=== PATIENT | male | born 1965 | race Caucasian/White ===

== ENCOUNTER 2021-08-14 17:18 | Emergency (ER) | payer OTHER ==
[~2021-08-14] VITALS: Ht 188 cm; Wt 86.2 kg
--- NOTE | ~2021-08-14 | EMS ---
[address] [address] EMS Patient Care Report Name: HEIDI LEW Room #: DEP NANCY Sarmiento#: [id number] Admission: 08/14/21 Attend Phys: Discharge: 08/14/21 Date of : 63 Report #: [id number] THIS REPORT FOR: //name// Report Transmitted: 08/14/2021 23:47 EMS Care Summary [place], [place]/[facility] Incident [id number] @ 08/14/2021 16:46 Incident Location [address] [address] [place] [address] Patient HEIDI LEW Male, 55 Years 1965 Patient Address [id number] [place], [place] [id number] Patient History Other, Chief Complaint multiple areas of pain Disposition Transported No Lights/[place] Transported To [facility] Narrative pt found ambulatory in room, NAD. he called 911 himself. he reports he was opening a wooden shutter blind and it came off the wall and landed on him, knocking him to the ground. denies LOC. pt is req eval at [facility] for multiple area of pain. he appears to freely walking around the room w/o pain, he agrees to eval at [facility]. pt seated on cot, VS. pt begins to c/o neck pain so c collar place just PTD. no changes during transport. [address] [address] EMS Patient Care Report Name: HEIDI LEW Room #: DEP [facility].R.#: [id number] Admission: 08/14/21 Attend Phys: Discharge: 08/14/21 Date of : 63 Report #: [id number] Initial Vitals @17:03P: 80,R: 18,BP: 142/83,Pain: 10/10,GCS: 15,SpO2: 99,Revised Trauma: 12, Assessments @16:55MENTAL:No Abnormalities,SKIN:No Abnormalities,HEENT:Head/Face: Other,LUNG SOUNDS:ABDOMEN:PELVIS//GI:EXTREMITIES:PULSE:NEURO: Impression Injury of Hip Procedures @16:55 ALS Assessment Response: Unchanged @16:58 Stretcher Response: Unchanged @17:03 Spinal Motion Restriction Response: Worse Timeline 16:44,Call Received 16:44,Dispatch Notified 16:46,Dispatched 16:46,En Route 16:51,On Scene 16:54,At Patient 16:55,ALS Assessment,Response: Unchanged 16:58,Stretcher,Response: Unchanged 17:03,Spinal Motion Restriction,Response: Worse 17:03,BP: 142/83 M,PULSE: 80,RR: 18 R,SPO2: 99 Ox,ETCO2: ,BG: ,PAIN: 10,GCS: 15, 17:04,Depart Scene 17:13,At Destination 17:38,Call Closed Disclaimer v1.1 Copyright 2021 [employer] This EMS Care Summary contains data elements from the applicable legal record (which may be displayed differently). It is designed to provide pertinent information for the following purposes: continuity of care, clinical quality, and state data reporting. The complete legal record is available to ED staff and administrators of the receiving hospital in [facility]'s Patient Tracker. All data is provided "as is."
--- NOTE | ~2021-08-14 | EMS ---
[address] [address] EMS Patient Care Report Name: HEIDI LEW Room #: DEP NANCY Sarmiento#: [id number] Admission: 08/14/21 Attend Phys: Discharge: 08/14/21 Date of : 63 Report #: [id number] THIS REPORT FOR: //name// Report Transmitted: 08/16/2021 14:41 EMS Care Summary [place], [place]/[facility] Incident [id number] @ 08/14/2021 16:46 Incident Location [id number] [place], [place] [address] Patient HEIDI LEW Male, 55 Years 1965 Patient Address [id number] [place], [place] [id number] Patient History Other, Chief Complaint multiple areas of pain Disposition Transported No Lights/[place] Transported To [facility] Narrative pt found ambulatory in room, NAD. he called 911 himself. he reports he was opening a wooden shutter blind and it came off the wall and landed on him, knocking him to the ground. denies LOC. pt is req eval at [facility] for multiple area of pain. he appears to freely walking around the room w/o pain, he agrees to eval at [facility]. pt seated on cot, VS. pt begins to c/o neck pain so c collar place just PTD. no changes during transport. [address] [address] EMS Patient Care Report Name: HEIDI LEW Room #: DEP [facility].#: [id number] Admission: 08/14/21 Attend Phys: Discharge: 08/14/21 Date of : 63 Report #: [id number] Initial Vitals @17:03P: 80,R: 18,BP: 142/83,Pain: 10/10,GCS: 15,SpO2: 99,Revised Trauma: 12, Assessments @16:55MENTAL:No Abnormalities,SKIN:No Abnormalities,HEENT:Head/Face: Other,LUNG SOUNDS:ABDOMEN:PELVIS//GI:EXTREMITIES:PULSE:NEURO: Impression Injury of Hip Procedures @16:55 ALS Assessment Response: Unchanged @16:58 Stretcher Response: Unchanged @17:03 Spinal Motion Restriction Response: Worse Timeline 16:44,Call Received 16:44,Dispatch Notified 16:46,Dispatched 16:46,En Route 16:51,On Scene 16:54,At Patient 16:55,ALS Assessment,Response: Unchanged 16:58,Stretcher,Response: Unchanged 17:03,Spinal Motion Restriction,Response: Worse 17:03,BP: 142/83 M,PULSE: 80,RR: 18 R,SPO2: 99 Ox,ETCO2: ,BG: ,PAIN: 10,GCS: 15, 17:04,Depart Scene 17:13,At Destination 17:38,Call Closed Disclaimer v1.1 Copyright 2021 [employer] This EMS Care Summary contains data elements from the applicable legal record (which may be displayed differently). It is designed to provide pertinent information for the following purposes: continuity of care, clinical quality, and state data reporting. The complete legal record is available to ED staff and administrators of the receiving hospital in [facility]'s Patient Tracker. All data is provided "as is."
[2021-08-14] MEDS ORDERED: ABILIFY10 MG PO (17:25)
[2021-08-14] MEDS ORDERED: NORVASC5 MG PO (17:25)
[2021-08-14] MEDS ORDERED: ASA81BEC PO (17:26)
[2021-08-14] MEDS ORDERED: ATOMOXETINE HCL80 MG PO (17:27)
[2021-08-14] MEDS ORDERED: VITAMIN B-121000 MC2 PO (17:28)
[2021-08-14] MEDS ORDERED: CHOLECALCIFEROL1 GM PO (17:28)
[2021-08-14] MEDS ORDERED: ESCITALOPRA5 MG/5 ML PO (17:29)
[2021-08-14] MEDS ORDERED: PROSCAR 5MG TABL5 M1 PO (17:29)
[2021-08-14] MEDS ORDERED: NEURONTIN100 MG PO (17:30)
[2021-08-14] MEDS ORDERED: METHOCARBAMOL750 MG PO (17:31)
[2021-08-14] MEDS ORDERED: HYDROXYZINE HCL50 MG PO (17:31)
[2021-08-14] MEDS ORDERED: NICOTINE LOZENGE4 MG PO (17:32)
[2021-08-14] MEDS ORDERED: NICOTINE GUM4 MG PO (17:32)
[2021-08-14] MEDS ORDERED: OXYBUTYNIN 5 MG5 M2 PO (17:32)
[2021-08-14] MEDS ORDERED: FLOMAX0.4 MG PO (17:33)
[2021-08-14 19:41] VITALS: BP 130/75
== END 2021-08-14 20:00 ==
LOC: ER 17:18
DX: M25.512 Pain in left shoulder (principal); M25.551 Pain in right hip; M25.562 Pain in left knee; B19.20 Unspecified viral hepatitis C without hepatic coma; F41.9 Anxiety disorder, unspecified; Z98.890 Other specified postprocedural states; Z79.82 Long term (current) use of aspirin; Z79.899 Other long term (current) drug therapy; Z79.891 Long term (current) use of opiate analgesic; W18.39XA Other fall on same level, initial encounter; Y93.89 Activity, other specified; Y92.89 Other specified places as the place of occurrence of the external cause; Y99.8 Other external cause status